=== PATIENT | female | born 1930 | race Caucasian/White ===

== ENCOUNTER 2017-04-12 16:18 | Emergency (ER) | payer MEDICARE, OTHER ==
[~2017-04-12] VITALS: Ht 157.5 cm; Wt 68.0 kg
[~2017-04-12 16:18] MED LIST: CALC500T63 PO; CHOLECALCIFEROL; CRAN400T3 PO; FLUO40CA8 PO; FLUV40CA PO; FLUV40CA6 PO; LANS30CA54 PO; LEVO50TA PO; LOSA1TAB15 PO; METF500T4 PO; OMEG1CAP PO
--- NOTE | 2017-04-12 16:32 | NUR ---
DR CARSON AT THE BEDSIDE FOR MSE.
--- NOTE | 2017-04-12 16:40 | NUR ---
PT STATES SHE WANTS TO GO HOME, SINCE NEIGHBORING BED IS COUGHING. AWARE.
[2017-04-12 16:46] VITALS: BP 120/87
--- NOTE | 2017-04-12 16:50 | NUR ---
Patient discharged to home in stable conditon. Written and verbal after care instructions given. Patient verbalizes understanding of instructions. PT LEFT ER ACCOMPAINED BY FAMILY.
== END 2017-04-12 16:50 | disposition home or self-care (01) ==
LOC: ER 16:19
DX: R55 Syncope and collapse (principal); E03.9 Hypothyroidism, unspecified; E78.00 Pure hypercholesterolemia, unspecified; E11.9 Type 2 diabetes mellitus without complications; I10 Essential (primary) hypertension; K21.9 Gastro-esophageal reflux disease without esophagitis; Z88.2 Allergy status to sulfonamides
CPT/HCPCS: 99283; A4663

== ENCOUNTER 2017-05-11 02:38 | Inpatient (IN) | payer MEDICARE, OTHER ==
[~2017-05-11] VITALS: Ht 157.5 cm; Wt 63.5 kg
[2017-05-11] MEDS ORDERED: IV NORMAL SALINE 1000 ML BAG IV ONE (03:30)
[2017-05-11] MEDS ORDERED: GENTAMICIN SULFATE INJ 80 MG in IV DEXTROSE 5% 100 ML IV ONE (03:30)
[2017-05-11] MEDS ORDERED: CEFEPIME HCL 1 G in IV DEXTROSE 5% 50 ML IV ONE (03:30)
[2017-05-11] MEDS ORDERED: VANCOMYCIN IV 1,000 MG in IV DEXTROSE 5% 250 ML IV ONE (03:30)
[2017-05-11 03:33] LABS: BASOPHILS % (AUTO) 0.8 % (0.0-2.0); EOSINOPHILS % (AUTO) 0.4 % (0.0-7.0); HEMATOCRIT 39.1 % (31.2-41.9); HEMOGLOBIN 13.3 g/dL (10.9-14.3); LYMPHOCYTES # (AUTO) 0.7 K/uL (20.0-40.0); LYMPHOCYTES % (AUTO) 22.1 % (20.5-51.5); MEAN CORPUSCULAR HEMOGLOBIN 29.9 uug (24.7-32.8); MEAN CORPUSCULAR HGB CONC 34 g/dL (32.3-35.6); MEAN CORPUSCULAR VOLUME 88.2 fL (75.5-95.3); MONOCYTES # (AUTO) 0.2 K/uL (2.0-10.0); MONOCYTES % (AUTO) 8.3 % (0.0-11.0); NEUTROPHILS % (AUTO) 68.4 % (38.5-71.5); PLATELET COUNT (AUTO) 142 K/uL (179-408); RED BLOOD CELL COUNT(AUTO) 4.43 MIL/uL (3.63-4.92)
[2017-05-11 03:45] LABS: CARBON DIOXIDE 24 mmol/L (21-32); CHLORIDE 103 mmol/L (98-107); CREATININE 1.1 mg/dL (0.6-1.3); GLUCOSE 141 mg/dL (74-106); POTASSIUM 3.3 mmol/L (3.5-5.1); UREA NITROGEN, BLOOD 16 mg/dL (7-18)
[2017-05-11 03:51] LABS: ALANINE AMINOTRANSFERASE 27 U/L (14-59); ALKALINE PHOSPHATASE 92 U/L (50-136); ASPARTATE AMINOTRANSFERASE 38 U/L (15-37); BILIRUBIN,DIRECT 0.1 mg/dL (0.0-0.2); BILIRUBIN,TOTAL 0.3 mg/dL (0.2-1.0); TOTAL PROTEIN, SERUM 6.1 g/dL (6.4-8.2)
[2017-05-11] MEDS ORDERED: CEFEPIME HCL 1 G VIAL ONE (03:52)
[2017-05-11] MEDS ORDERED: VANCOMYCIN IV 200 ML ONE (04:33)
[2017-05-11 05:28] LABS: *BILIRUBIN,URIN NEGATIVE (NEGATIVE); *BLOOD, URINE NEGATIVE (NEGATIVE); *CLARITY,URINE SLIGHTLY CLOUDY (CLEAR); *COLOR,URINE STRAW (YELLOW); *KETONES,URINE NEGATIVE (NEGATIVE); *PROTEIN,URINE NEGATIVE (NEGATIVE); *UROBILINOGEN,URINE 0.2 E.U./dl (NORMAL); LEUKOCYTE ESTERASE ,URINE NEGATIVE (NEGATIVE); NITRITE, URINE NEGATIVE (NEGATIVE); PH,URINE 5.5 (5.0-8.0); UGLUCOSE NEGATIVE (NEGATIVE)
[2017-05-11 05:38] LABS: BACTERIA,URINE FEW /HPF (NONE SEEN); MUCUS,URINE FEW /LPF (0-FEW); RBC,URINE 0-3 /HPF (0-3); SQUAMOUS EPITHELIAL CELL,UR MODERATE /HPF (NONE SEEN); WBC,URINE 0-3 /HPF (0-3)
[2017-05-11] MEDS ORDERED: GENTAMICIN SULFATE 80 MG/2 ML VIAL ONE (05:59)
[2017-05-11 06:10] VITALS: BP 150/83
[2017-05-11] MEDS ORDERED: MAGNESIUM HYDROXIDE 30 ML LIQUID UDC PO PRN (06:30)
[2017-05-11] MEDS ORDERED: DEXTROSE 50% 50 ML DISP.SYRIN IV PRN (06:30)
[2017-05-11] MEDS ORDERED: ACETAMINOPHEN 325 MG TABLET PO PRN (06:30)
[2017-05-11] MEDS ORDERED: INSULIN REGULAR, HUMAN 300 UNIT/3 ML VIAL SQ PRN (06:30)
[2017-05-11] MEDS ORDERED: ONDANSETRON 4 MG/2 ML VIAL IV PRN (06:30)
[2017-05-11] MEDS ORDERED: HYDROCODONE/APAP 5-325MG TABLET PO PRN (06:30)
[2017-05-11] MEDS: LEVOTHYROXINE SODIUM 50 MCG TABLET PO SCH (07:30)
[2017-05-11 07:38] LABS: BASOPHILS % (AUTO) 0.5 % (0.0-2.0); EOSINOPHILS % (AUTO) 0.1 % (0.0-7.0); HEMATOCRIT 39.1 % (31.2-41.9); HEMOGLOBIN 13.1 g/dL (10.9-14.3); LYMPHOCYTES # (AUTO) 0.8 K/uL (20.0-40.0); LYMPHOCYTES % (AUTO) 25.6 % (20.5-51.5); MEAN CORPUSCULAR HEMOGLOBIN 29.8 uug (24.7-32.8); MEAN CORPUSCULAR HGB CONC 34 g/dL (32.3-35.6); MEAN CORPUSCULAR VOLUME 88.9 fL (75.5-95.3); MONOCYTES # (AUTO) 0.2 K/uL (2.0-10.0); MONOCYTES % (AUTO) 6.4 % (0.0-11.0); NEUTROPHILS # (AUTO) 2.2 K/uL (1.8-8.9); NEUTROPHILS % (AUTO) 67.4 % (38.5-71.5); PLATELET COUNT (AUTO) 142 K/uL (179-408); WHITE BLOOD COUNT (AUTO) 3.3 K/uL (3.8-11.8)
[2017-05-11 07:43] LABS: CARBON DIOXIDE 24 mmol/L (21-32); CHLORIDE 109 mmol/L (98-107); GLUCOSE 134 mg/dL (74-106); POTASSIUM 3.6 mmol/L (3.5-5.1); UREA NITROGEN, BLOOD 14 mg/dL (7-18)
[2017-05-11 07:48] LABS: ALANINE AMINOTRANSFERASE 27 U/L (14-59); ALKALINE PHOSPHATASE 87 U/L (50-136); ASPARTATE AMINOTRANSFERASE 35 U/L (15-37); BILIRUBIN,TOTAL 0.3 mg/dL (0.2-1.0); CHOLESTEROL 98 mg/dL (<200); HDL CHOLESTEROL 59 mg/dL (40-60); MAGNESIUM 2.1 mg/dL (1.8-2.4); PHOSPHOROUS 3.3 mg/dL (2.5-4.9); TRIGLYCERIDES 72 MG/DL (30-150)
[2017-05-11 07:59] VITALS: BP 149/86
[2017-05-11 08:19] LABS: THYROID STIMULATING HORMONE 1.611 mIU/mL (0.358-3.740)
[2017-05-11] MEDS ORDERED: LOSA50TA21 PO (08:28)
[2017-05-11] MEDS ORDERED: ROSU20TA PO (08:28)
[2017-05-11] MEDS: ASPIRIN EC 81 MG TABLET.DR PO SCH (09:00)
[2017-05-11] MEDS: CALCIUM CARBONATE 500 MG TAB.CHEW PO SCH (09:00)
[2017-05-11] MEDS: METFORMIN HCL 500 MG TABLET PO SCH (09:00)
[2017-05-11] MEDS: PANTOPRAZOLE SODIUM 40 MG TABLET.DR PO SCH (09:00)
[2017-05-11] MEDS: OMEGA-3 FATTY ACIDS/FISH OIL CAPSULE PO SCH (09:00)
[2017-05-11] MEDS: BLOOD SUGAR DIAGNOSTIC 1 EACH STRIP VI SCH ×4 (09:01→20:11)
[2017-05-11 11:24] VITALS: BP 145/71
[2017-05-11 15:36] VITALS: BP 138/73
[2017-05-11 19:52] VITALS: BP 139/78
[2017-05-11] MEDS ORDERED: FLUVASTATIN SODIUM 40 MG PO SCH (21:00)
[2017-05-11] MEDS ORDERED: ATORVASTATIN 10 MG TABLET PO SCH (21:00)
[2017-05-11] MEDS ORDERED: DOCUSATE SODIUM 100 MG/10 ML LIQUID UDC PO SCH (21:00)
[2017-05-12 00:45] VITALS: BP 118/82
[2017-05-12 04:55] VITALS: BP 157/82
[2017-05-12] MEDS: LEVOTHYROXINE SODIUM 50 MCG TABLET PO SCH (06:09)
[2017-05-12] MEDS: PANTOPRAZOLE SODIUM 40 MG TABLET.DR PO SCH (06:09)
[2017-05-12] MEDS: BLOOD SUGAR DIAGNOSTIC 1 EACH STRIP VI SCH ×2 (06:12→11:55)
[2017-05-12] MEDS: ASPIRIN EC 81 MG TABLET.DR PO SCH (08:07)
[2017-05-12] MEDS: CALCIUM CARBONATE 500 MG TAB.CHEW PO SCH (08:07)
[2017-05-12] MEDS: OMEGA-3 FATTY ACIDS/FISH OIL CAPSULE PO SCH (08:07)
[2017-05-12] MEDS: METFORMIN HCL 500 MG TABLET PO SCH (08:11)
[2017-05-12 11:00] VITALS: BP_SYST 135; BP_SYST 143; BP_SYST 157; BP_DIAS 73; BP_DIAS 76; BP_DIAS 82
== END 2017-05-12 13:10 | disposition home or self-care (01) | DRG 74 ==
LOC: ER 02:39 → TELE 05:32 → UNDOADMIN 05:32 → MED 05-12 10:10
PROVIDERS: ADMIT Internal Medicine
DX: G90.8 Other disorders of autonomic nervous system (principal); E11.9 Type 2 diabetes mellitus without complications; I45.2 Bifascicular block; D72.819 Decreased white blood cell count, unspecified; E78.00 Pure hypercholesterolemia, unspecified; E03.9 Hypothyroidism, unspecified; I10 Essential (primary) hypertension; Z79.84 Long term (current) use of oral hypoglycemic drugs; Z79.899 Other long term (current) drug therapy; I67.2 Cerebral atherosclerosis; I95.1 Orthostatic hypotension; K21.9 Gastro-esophageal reflux disease without esophagitis
CPT/HCPCS: 36415; 70030-TC; 70450; 71045; 83605; 83735; 84100; 84443; 85025; 85730; 87040; 87086; 93005; 93307; 93880; A4663; J0692; J1580; J1815; J2405; J3370; J7030; J7060

== ENCOUNTER 2018-10-09 16:33 | Emergency (ER) | payer BC, MEDICARE ==
[~2018-10-09] VITALS: Ht 157.5 cm; Wt 68.0 kg
[~2018-10-09 16:33] MED LIST changes: -CALC500T63 PO; -CHOLECALCIFEROL; -CRAN400T3 PO; -FLUO40CA8 PO; -FLUV40CA PO; -FLUV40CA6 PO; -LANS30CA54 PO; -LOSA1TAB15 PO; +LOSA50TA39 PO; -METF500T4 PO; -OMEG1CAP PO; +ROSU20TA2 PO
[2018-10-09] MEDS ORDERED: IV NORMAL SALINE 1000 ML BAG IV ONE (16:45)
[2018-10-09 16:55] LABS: BASOPHILS # (AUTO) 0.1 K/uL (0.0-8.0); BASOPHILS % (AUTO) 0.8 % (0.0-2.0); EOSINOPHILS # (AUTO) 0.2 K/uL (0.0-0.7); EOSINOPHILS % (AUTO) 2.1 % (0.0-7.0); HEMATOCRIT 41.9 % (31.2-41.9); HEMOGLOBIN 13.6 g/dL (10.9-14.3); LYMPHOCYTES # (AUTO) 2.4 K/uL (20.0-40.0); LYMPHOCYTES % (AUTO) 30.1 % (20.5-51.5); MEAN CORPUSCULAR HEMOGLOBIN 29.3 uug (24.7-32.8); MEAN CORPUSCULAR HGB CONC 33 g/dL (32.3-35.6); MONOCYTES # (AUTO) 0.5 K/uL (2.0-10.0); MONOCYTES % (AUTO) 5.9 % (0.0-11.0); NEUTROPHILS # (AUTO) 4.8 K/uL (1.8-8.9); NEUTROPHILS % (AUTO) 61.1 % (38.5-71.5); PLATELET COUNT (AUTO) 261 K/uL (179-408); RED BLOOD CELL COUNT(AUTO) 4.66 MIL/uL (3.63-4.92); WHITE BLOOD COUNT (AUTO) 7.9 K/uL (3.8-11.8)
[2018-10-09 17:03] LABS: CARBON DIOXIDE 25 mmol/L (21-32); CHLORIDE 107 mmol/L (98-107); CREATININE 1.2 mg/dL (0.6-1.3); GLUCOSE 127 mg/dL (74-106); POTASSIUM 3.7 mmol/L (3.5-5.1); UREA NITROGEN, BLOOD 17 mg/dL (7-18)
[2018-10-09 17:09] LABS: ALANINE AMINOTRANSFERASE 18 U/L (14-59); ALKALINE PHOSPHATASE 100 U/L (50-136); ASPARTATE AMINOTRANSFERASE 20 U/L (15-37); BILIRUBIN,DIRECT 0.1 mg/dL (0.0-0.2); BILIRUBIN,TOTAL 0.5 mg/dL (0.2-1.0); TOTAL PROTEIN, SERUM 6.5 g/dL (6.4-8.2)
--- NOTE | 2018-10-09 18:18 | NUR ---
pt assymptomatic since arrival. no distress. ambulates easily no distress. advised fu pmd in 2 days, and rest. and return if symptoms increase change or persist
[2018-10-09 18:39] VITALS: BP 122/45
== END 2018-10-09 18:42 | disposition home or self-care (01) ==
LOC: ER 16:35
DX: R55 Syncope and collapse (principal); I10 Essential (primary) hypertension; E78.00 Pure hypercholesterolemia, unspecified; E11.9 Type 2 diabetes mellitus without complications; K21.9 Gastro-esophageal reflux disease without esophagitis; Z88.2 Allergy status to sulfonamides; Z88.8 Allergy status to other drugs, medicaments and biological substances; Z79.899 Other long term (current) drug therapy
CPT/HCPCS: 36415; 70030-TC; 71045; 85025; 85730; 93005; A4663; J7030